=== PATIENT | female | born 1955 | race Caucasian/White ===

== ENCOUNTER 2021-07-20 19:02 | Inpatient (IN) | payer OTHER, MEDICARE ==
[~2021-07-20] VITALS: Ht 160 cm; Wt 114.1 kg
[2021-07-20 20:48] LABS: BASOPHILS % (AUTO) 0.2 % (0.0-5.0); EOSINOPHILS % (AUTO) 1.1 % (0.0-8.0); HEMATOCRIT 38.4 % (36-48); LYMPHOCYTES % (AUTO) 33.8 % (21.0-51.0); MEAN CORPUSCULAR HEMOGLOBIN 25.4 pg (27.0-33.0); MEAN CORPUSCULAR HGB CONC 29.9 g/dL (32.0-36.0); MEAN CORPUSCULAR VOLUME 84.8 fL (79-99); MONOCYTES % (AUTO) 4.9 % (3.0-13.0); PLATELET COUNT (AUTO) 185 K/uL (130-400); RED BLOOD CELL COUNT(AUTO) 4.53 MIL/uL (4.00-5.50); RED CELL DISTRIBUTION WIDTH 15.8 % (11.0-15.5); WHITE BLOOD COUNT (AUTO) 9.2 K/uL (4.8-10.8)
[2021-07-20 20:58] LABS: INR 0.98 (0.85-1.15); PROTHROMBIN TIME 10.7 SEC (9.6-11.6)
[2021-07-20 20:59] LABS: PARTIAL THROMBOPLASTIN TIME 25.1 SEC (26.3-35.5)
[2021-07-20 21:00] LABS: APPEARANCE,URINE Clear (CLEAR); BILIRUBIN,URINE Negative (NEGATIVE); COLOR,URINE Yellow (YELLOW); GLUCOSE, URINE (UA) Negative (NEGATIVE); KETONES,URINE Negative (NEGATIVE); LEUKOCYTE ESTERASE ,URINE Negative (NEGATIVE); NITRATE,URINE Negative (NEGATIVE); OCCULT BLOOD,URINE Negative (NEGATIVE); PH,URINE 5.5 (5.0-8.0); PROTEIN,URINE Negative (NEGATIVE)
[2021-07-20 21:00] LABS: CREATININE 1.4 mg/dL (0.5-1.5)
[2021-07-20] MEDS ORDERED: LISI10TA24 PO (21:02)
[2021-07-20] MEDS ORDERED: FERR-72 PO (21:02)
[2021-07-20] MEDS ORDERED: FAMO40TA7 PO (21:02)
[2021-07-20] MEDS ORDERED: ESOM40CA54 PO (21:02)
[2021-07-20] MEDS ORDERED: SEMA7TAB2 PO (21:02)
[2021-07-20] MEDS ORDERED: ALBU18HF7 IH (21:02)
[2021-07-20] MEDS ORDERED: ATOR40TA69 PO (21:02)
[2021-07-20] MEDS ORDERED: GABA-529 PO (21:02)
[2021-07-20] MEDS ORDERED: ALEN70TA80 PO (21:02)
[2021-07-20] MEDS ORDERED: FURO20TA4 PO (21:02)
[2021-07-20] MEDS ORDERED: ISOS30TA92 PO (21:02)
[2021-07-20] MEDS ORDERED: BUPR-317 PO (21:02)
[2021-07-20] MEDS ORDERED: ACET-66 PO (21:02)
[2021-07-20 21:07] LABS: ALBUMIN 3.5 g/dL (3.5-5.0); BILIRUBIN,TOTAL 0.3 mg/dL (0.2-1.0); TOTAL PROTEIN, SERUM 7.8 g/dL (6.0-8.3)
[2021-07-20] MEDS ORDERED: ACETAMINOPHEN 500 MG TABLET PO ONE (22:00)
[2021-07-20] MEDS ORDERED: MORPHINE 2 MG SYG IVP PRN (22:30)
[2021-07-20] MEDS ORDERED: ALBUTEROL INHALER 90MCG/INH IH PRN (23:30)
[2021-07-21] VITALS (7 sets, daily range): BP systolic 107–152; BP diastolic 47–66
[2021-07-21 05:04] LABS: BASOPHILS % (AUTO) 0.4 % (0.0-5.0); EOSINOPHILS % (AUTO) 1.2 % (0.0-8.0); HEMATOCRIT 35.5 % (36-48); LYMPHOCYTES % (AUTO) 37.3 % (21.0-51.0); MEAN CORPUSCULAR HEMOGLOBIN 25.7 pg (27.0-33.0); MEAN CORPUSCULAR HGB CONC 29.9 g/dL (32.0-36.0); MEAN CORPUSCULAR VOLUME 86.2 fL (79-99); MONOCYTES % (AUTO) 5.2 % (3.0-13.0); NEUTROPHILS % (AUTO) 55.2 % (40.0-77.0); PLATELET COUNT (AUTO) 157 K/uL (130-400); RED BLOOD CELL COUNT(AUTO) 4.12 MIL/uL (4.00-5.50); RED CELL DISTRIBUTION WIDTH 15.9 % (11.0-15.5); WHITE BLOOD COUNT (AUTO) 8.1 K/uL (4.8-10.8)
[2021-07-21 05:10] LABS: CREATININE 1.3 mg/dL (0.5-1.5); POTASSIUM 3.8 mmol/L (3.5-5.1)
[2021-07-21 05:34] LABS: HEMOGLOBIN A1C 6.6 % (4.0-6.0)
[2021-07-21] MEDS: SEMAGLUTIDE 7 MG PO SCH (07:30)
[2021-07-21] MEDS: PANTOPRAZOLE 40 MG TAB DR PO SCH (08:34)
[2021-07-21] MEDS: GABAPENTIN 100 MG CAPSULE PO SCH ×3 (08:34→19:59)
[2021-07-21] MEDS: ISOSORBIDE MONO 30MG SR TAB PO SCH (08:35)
[2021-07-21] MEDS: LISINOPRIL 10 MG TABLET PO SCH (08:36)
[2021-07-21] MEDS: ATORVASTATIN 40 MG TABLET PO SCH (08:36)
[2021-07-21] MEDS: FERROUS SULFATE 325 MG TABLET.DR PO SCH (08:36)
[2021-07-21] MEDS: BUPROPION HCL 150 MG TABLET.SA PO SCH (08:36)
[2021-07-21] MEDS: FUROSEMIDE 20 MG TABLET PO SCH (08:36)
[2021-07-21] MEDS: ONDANSETRON 4MG INJ IVP PRN ×2 (10:03→20:00)
[2021-07-21] MEDS: FAMOTIDINE 20MG TAB PO SCH (19:56)
[2021-07-22 03:54] VITALS: BP 127/46
[2021-07-22] MEDS: SEMAGLUTIDE 7 MG PO SCH (07:30)
[2021-07-22 08:00] VITALS: BP 140/35
[2021-07-22] MEDS: GABAPENTIN 100 MG CAPSULE PO SCH ×3 (09:03→21:19)
[2021-07-22] MEDS: ISOSORBIDE MONO 30MG SR TAB PO SCH (09:03)
[2021-07-22] MEDS: FERROUS SULFATE 325 MG TABLET.DR PO SCH (09:03)
[2021-07-22] MEDS: ATORVASTATIN 40 MG TABLET PO SCH (09:03)
[2021-07-22] MEDS: LISINOPRIL 10 MG TABLET PO SCH (09:04)
[2021-07-22] MEDS: PANTOPRAZOLE 40 MG TAB DR PO SCH (09:04)
[2021-07-22] MEDS: BUPROPION HCL 150 MG TABLET.SA PO SCH (09:04)
[2021-07-22] MEDS: FUROSEMIDE 20 MG TABLET PO SCH (09:05)
[2021-07-22] MEDS ORDERED: ACET-2521 PO (09:13)
[2021-07-22 16:00] VITALS: BP 132/69
[2021-07-22] MEDS: ACETAMINOPHEN 325 MG TAB PO PRN (17:16)
[2021-07-22 20:00] VITALS: BP 142/63
[2021-07-22] MEDS: ARTHRITIS PAIN RELIEF PO SCH (21:00)
[2021-07-22] MEDS: FAMOTIDINE 20MG TAB PO SCH (21:19)
[2021-07-23] VITALS: BP 138/63
[2021-07-23 04:00] VITALS: BP 133/60
[2021-07-23 04:22] LABS: HEMATOCRIT 38.9 % (36-48); MEAN CORPUSCULAR HEMOGLOBIN 25.9 pg (27.0-33.0); MEAN CORPUSCULAR HGB CONC 30.1 g/dL (32.0-36.0); MEAN CORPUSCULAR VOLUME 86.1 fL (79-99); RED BLOOD CELL COUNT(AUTO) 4.52 MIL/uL (4.00-5.50); RED CELL DISTRIBUTION WIDTH 16.1 % (11.0-15.5); WHITE BLOOD COUNT (AUTO) 9.2 K/uL (4.8-10.8)
[2021-07-23 04:52] LABS: CREATININE 1.3 mg/dL (0.5-1.5); MAGNESIUM 2.2 mg/dL (1.80-2.40); POTASSIUM 4.4 mmol/L (3.5-5.1)
[2021-07-23] MEDS: ALENDRONATE SODIUM 35 MG TAB PO SCH (05:34)
[2021-07-23] MEDS: SEMAGLUTIDE 7 MG PO SCH (06:38)
[2021-07-23] MEDS: PANTOPRAZOLE 40 MG TAB DR PO SCH (06:38)
[2021-07-23] MEDS: FERROUS SULFATE 325 MG TABLET.DR PO SCH (06:38)
[2021-07-23] MEDS ORDERED: REGADENOSON 0.4 MG/5 ML PF SYG IVP SCH (07:00)
[2021-07-23] MEDS ORDERED: ALBUTEROL INHALER 90MCG/INH IH PRN (07:00)
[2021-07-23] MEDS: ARTHRITIS PAIN RELIEF PO SCH ×2 (09:00→21:00)
[2021-07-23] MEDS: GABAPENTIN 100 MG CAPSULE PO SCH ×3 (09:00→21:20)
[2021-07-23 12:00] VITALS: BP 149/65
[2021-07-23] MEDS: LISINOPRIL 10 MG TABLET PO SCH (13:03)
[2021-07-23] MEDS: ISOSORBIDE MONO 30MG SR TAB PO SCH (13:04)
[2021-07-23] MEDS: ATORVASTATIN 40 MG TABLET PO SCH (13:04)
[2021-07-23] MEDS: FUROSEMIDE 20 MG TABLET PO SCH (13:04)
[2021-07-23 16:00] VITALS: BP 148/72
[2021-07-23] MEDS: BUPROPION HCL 150 MG TABLET.SA PO SCH (16:52)
[2021-07-23 19:30] VITALS: BP 157/81
[2021-07-23] MEDS: FAMOTIDINE 20MG TAB PO SCH (21:21)
[2021-07-23] MEDS ORDERED: METO50 PO (21:29)
[2021-07-23] MEDS: ACETAMINOPHEN 325 MG TAB PO PRN (21:30)
[2021-07-24] VITALS (7 sets, daily range): BP systolic 107–160; BP diastolic 53–69
[2021-07-24] MEDS: SEMAGLUTIDE 7 MG PO SCH (07:30)
[2021-07-24] MEDS: PANTOPRAZOLE 40 MG TAB DR PO SCH (07:30)
[2021-07-24] MEDS: ARTHRITIS PAIN RELIEF PO SCH ×2 (09:00→21:00)
[2021-07-24] MEDS: BUPROPION HCL 150 MG TABLET.SA PO SCH (09:04)
[2021-07-24] MEDS: LISINOPRIL 10 MG TABLET PO SCH (09:04)
[2021-07-24] MEDS: ATORVASTATIN 40 MG TABLET PO SCH (09:04)
[2021-07-24] MEDS: METOPROLOL TARTRATE 50 MG TAB PO SCH ×2 (09:04→21:15)
[2021-07-24] MEDS: FUROSEMIDE 20 MG TABLET PO SCH (09:05)
[2021-07-24] MEDS: GABAPENTIN 100 MG CAPSULE PO SCH ×3 (09:05→21:14)
[2021-07-24] MEDS: ISOSORBIDE MONO 30MG SR TAB PO SCH (09:05)
[2021-07-24] MEDS: FERROUS SULFATE 325 MG TABLET.DR PO SCH (09:05)
[2021-07-24] MEDS: ACETAMINOPHEN 325 MG TAB PO PRN (17:59)
[2021-07-24] MEDS: FAMOTIDINE 20MG TAB PO SCH (21:13)
[2021-07-25 04:02] VITALS: BP 135/54
[2021-07-25 07:25] VITALS: BP 147/63
[2021-07-25] MEDS: SEMAGLUTIDE 7 MG PO SCH (07:30)
[2021-07-25] MEDS: PANTOPRAZOLE 40 MG TAB DR PO SCH (08:25)
[2021-07-25] MEDS: BUPROPION HCL 150 MG TABLET.SA PO SCH (08:25)
[2021-07-25] MEDS: LISINOPRIL 10 MG TABLET PO SCH (08:25)
[2021-07-25] MEDS: ASPIRIN 81 MG EC TAB PO SCH (08:26)
[2021-07-25] MEDS: METOPROLOL TARTRATE 50 MG TAB PO SCH ×2 (08:26→22:10)
[2021-07-25] MEDS: ISOSORBIDE MONO 30MG SR TAB PO SCH (08:26)
[2021-07-25] MEDS: FERROUS SULFATE 325 MG TABLET.DR PO SCH (08:26)
[2021-07-25] MEDS: FUROSEMIDE 20 MG TABLET PO SCH (08:26)
[2021-07-25] MEDS: ATORVASTATIN 40 MG TABLET PO SCH (08:26)
[2021-07-25] MEDS: GABAPENTIN 100 MG CAPSULE PO SCH ×3 (08:27→22:10)
[2021-07-25] MEDS: ARTHRITIS PAIN RELIEF PO SCH ×2 (08:27→22:15)
[2021-07-25 09:49] LABS: HEMATOCRIT 38.8 % (36-48); MEAN CORPUSCULAR HEMOGLOBIN 25.5 pg (27.0-33.0); MEAN CORPUSCULAR HGB CONC 30.4 g/dL (32.0-36.0); RED BLOOD CELL COUNT(AUTO) 4.62 MIL/uL (4.00-5.50); RED CELL DISTRIBUTION WIDTH 15.8 % (11.0-15.5); WHITE BLOOD COUNT (AUTO) 16.5 K/uL (4.8-10.8)
[2021-07-25 10:05] LABS: CREATININE 1.2 mg/dL (0.5-1.5); POTASSIUM 4.1 mmol/L (3.5-5.1)
[2021-07-25 11:20] VITALS: BP 114/69
[2021-07-25] MEDS: CEFTRIAXONE 1G VIAL IVP SCH (14:58)
[2021-07-25 15:24] LABS: APPEARANCE,URINE Clear (CLEAR); BILIRUBIN,URINE Negative (NEGATIVE); COLOR,URINE Dark Yellow (YELLOW); GLUCOSE, URINE (UA) Negative (NEGATIVE); KETONES,URINE Negative (NEGATIVE); LEUKOCYTE ESTERASE ,URINE Moderate (NEGATIVE); NITRATE,URINE Positive (NEGATIVE); OCCULT BLOOD,URINE Negative (NEGATIVE); PROTEIN,URINE Trace mg/dL (NEGATIVE)
[2021-07-25 15:30] VITALS: BP 121/48
[2021-07-25 15:31] LABS: HYALINE CASTS, URINE 0-1 /LPF (0-1 /LPF)
[2021-07-25 15:32] LABS: MUCUS,URINE Few LPF (None Seen)
[2021-07-25 15:33] LABS: RBC,URINE 0-1 /HPF (0-1)
[2021-07-25 15:34] LABS: BACTERIA,URINE Moderate /HPF (None Seen)
[2021-07-25 20:08] VITALS: BP 134/83
[2021-07-25] MEDS: LACTULOSE 20 GM/30 ML UDCUP PO SCH (22:09)
[2021-07-25] MEDS: FAMOTIDINE 20MG TAB PO SCH (22:10)
[2021-07-25 23:51] VITALS: BP 120/74
[2021-07-26 03:50] VITALS: BP 122/62
[2021-07-26] MEDS: SEMAGLUTIDE 7 MG PO SCH (06:47)
[2021-07-26] MEDS: PANTOPRAZOLE 40 MG TAB DR PO SCH (06:52)
[2021-07-26] MEDS: ASPIRIN 81 MG EC TAB PO SCH (07:57)
[2021-07-26] MEDS: ATORVASTATIN 40 MG TABLET PO SCH (07:58)
[2021-07-26] MEDS: FUROSEMIDE 20 MG TABLET PO SCH (07:58)
[2021-07-26] MEDS: BUPROPION HCL 150 MG TABLET.SA PO SCH (07:58)
[2021-07-26] MEDS: LISINOPRIL 10 MG TABLET PO SCH (07:59)
[2021-07-26] MEDS: ISOSORBIDE MONO 30MG SR TAB PO SCH (07:59)
[2021-07-26] MEDS: FERROUS SULFATE 325 MG TABLET.DR PO SCH (07:59)
[2021-07-26] MEDS: LACTULOSE 20 GM/30 ML UDCUP PO SCH ×2 (07:59→21:22)
[2021-07-26] MEDS: METOPROLOL TARTRATE 50 MG TAB PO SCH ×2 (07:59→21:22)
[2021-07-26 08:00] VITALS: BP 150/77
[2021-07-26] MEDS: GABAPENTIN 100 MG CAPSULE PO SCH ×3 (08:03→21:22)
[2021-07-26] MEDS: ARTHRITIS PAIN RELIEF PO SCH ×2 (08:04→21:00)
[2021-07-26 12:00] VITALS: BP_SYST 118; BP_SYST 135; BP_DIAS 59; BP_DIAS 65
[2021-07-26] MEDS: CEFTRIAXONE 1G VIAL IVP SCH (13:12)
[2021-07-26 16:00] VITALS: BP 120/73
[2021-07-26 20:10] VITALS: BP 145/70
[2021-07-26] MEDS: FAMOTIDINE 20MG TAB PO SCH (21:22)
[2021-07-26 23:26] VITALS: BP 135/49
[2021-07-27 03:42] VITALS: BP 112/70
[2021-07-27 05:38] LABS: BASOPHILS % (AUTO) 0.1 % (0.0-5.0); HEMATOCRIT 36.9 % (36-48); LYMPHOCYTES % (AUTO) 8.3 % (21.0-51.0); MEAN CORPUSCULAR HEMOGLOBIN 25.4 pg (27.0-33.0); MEAN CORPUSCULAR HGB CONC 30.1 g/dL (32.0-36.0); MEAN CORPUSCULAR VOLUME 84.4 fL (79-99); MONOCYTES % (AUTO) 6.7 % (3.0-13.0); NEUTROPHILS % (AUTO) 84.2 % (40.0-77.0); PLATELET COUNT (AUTO) 210 K/uL (130-400); RED BLOOD CELL COUNT(AUTO) 4.37 MIL/uL (4.00-5.50); RED CELL DISTRIBUTION WIDTH 15.9 % (11.0-15.5); WHITE BLOOD COUNT (AUTO) 17.4 K/uL (4.8-10.8)
[2021-07-27 05:42] LABS: CREATININE 1.5 mg/dL (0.5-1.5); POTASSIUM 3.7 mmol/L (3.5-5.1)
[2021-07-27] MEDS: SEMAGLUTIDE 7 MG PO SCH (06:30)
[2021-07-27] MEDS: PANTOPRAZOLE 40 MG TAB DR PO SCH (06:34)
[2021-07-27] MEDS: ALENDRONATE SODIUM 35 MG TAB PO SCH (06:34)
[2021-07-27 07:30] VITALS: BP 136/61
[2021-07-27] MEDS: ARTHRITIS PAIN RELIEF PO SCH ×2 (09:00→21:00)
[2021-07-27] MEDS: ATORVASTATIN 40 MG TABLET PO SCH (09:45)
[2021-07-27] MEDS: GABAPENTIN 100 MG CAPSULE PO SCH ×3 (09:46→22:27)
[2021-07-27] MEDS: FUROSEMIDE 20 MG TABLET PO SCH (09:46)
[2021-07-27] MEDS: ASPIRIN 81 MG EC TAB PO SCH (09:46)
[2021-07-27] MEDS: BUPROPION HCL 150 MG TABLET.SA PO SCH (09:46)
[2021-07-27] MEDS: ISOSORBIDE MONO 30MG SR TAB PO SCH (09:46)
[2021-07-27] MEDS: LISINOPRIL 10 MG TABLET PO SCH (09:46)
[2021-07-27] MEDS: FERROUS SULFATE 325 MG TABLET.DR PO SCH (09:46)
[2021-07-27] MEDS: LACTULOSE 20 GM/30 ML UDCUP PO SCH ×2 (09:48→22:27)
[2021-07-27] MEDS: METOPROLOL TARTRATE 50 MG TAB PO SCH ×2 (09:50→22:27)
[2021-07-27 11:30] VITALS: BP 108/44
[2021-07-27] MEDS ORDERED: 0.9%NACL 10ML VIAL ONE (13:39)
[2021-07-27] MEDS: CEFTRIAXONE 1G VIAL IVP SCH (13:42)
[2021-07-27 16:00] VITALS: BP 115/56
[2021-07-27] MEDS ORDERED: ZOSYN 3.375GM +NS 50ML IV SCH (17:30)
[2021-07-27 20:00] VITALS: BP 127/61
[2021-07-27] MEDS: FAMOTIDINE 20MG TAB PO SCH (22:27)
[2021-07-27] MEDS ORDERED: ZOSYN 3.375GM+NS 50ML 50 ML ONE (23:54)
[2021-07-28] VITALS: BP 116/65
[2021-07-28 04:00] VITALS: BP 119/54
[2021-07-28] MEDS: SEMAGLUTIDE 7 MG PO SCH (06:55)
[2021-07-28] MEDS: PANTOPRAZOLE 40 MG TAB DR PO SCH (06:57)
[2021-07-28 07:30] VITALS: BP 112/42
[2021-07-28] MEDS: ARTHRITIS PAIN RELIEF PO SCH ×2 (09:00→20:24)
[2021-07-28] MEDS: ZOSYN 3.375GM +NS 50ML IV SCH ×3 (09:32→20:05)
[2021-07-28] MEDS: LACTULOSE 20 GM/30 ML UDCUP PO SCH ×2 (09:33→20:23)
[2021-07-28] MEDS: ATORVASTATIN 40 MG TABLET PO SCH (09:34)
[2021-07-28] MEDS: LISINOPRIL 10 MG TABLET PO SCH (09:34)
[2021-07-28] MEDS: FERROUS SULFATE 325 MG TABLET.DR PO SCH (09:34)
[2021-07-28] MEDS: ISOSORBIDE MONO 30MG SR TAB PO SCH (09:34)
[2021-07-28] MEDS: FUROSEMIDE 20 MG TABLET PO SCH (09:35)
[2021-07-28] MEDS: BUPROPION HCL 150 MG TABLET.SA PO SCH (09:35)
[2021-07-28] MEDS: ASPIRIN 81 MG EC TAB PO SCH (09:35)
[2021-07-28] MEDS: GABAPENTIN 100 MG CAPSULE PO SCH ×3 (09:35→20:23)
[2021-07-28] MEDS: METOPROLOL TARTRATE 50 MG TAB PO SCH ×2 (09:35→20:23)
[2021-07-28 11:00] VITALS: BP 135/54
[2021-07-28 16:00] VITALS: BP 108/40
[2021-07-28 20:00] VITALS: BP 103/51
[2021-07-28] MEDS: FAMOTIDINE 20MG TAB PO SCH (20:23)
[2021-07-29] VITALS (7 sets, daily range): BP systolic 104–123; BP diastolic 45–89
[2021-07-29] MEDS: ZOSYN 3.375GM +NS 50ML IV SCH ×3 (01:01→18:02)
[2021-07-29 04:50] LABS: HEMATOCRIT 32.8 % (36-48); MEAN CORPUSCULAR HEMOGLOBIN 24.9 pg (27.0-33.0); MEAN CORPUSCULAR HGB CONC 30.2 g/dL (32.0-36.0); MEAN CORPUSCULAR VOLUME 82.4 fL (79-99); PLATELET COUNT (AUTO) 218 K/uL (130-400); RED BLOOD CELL COUNT(AUTO) 3.98 MIL/uL (4.00-5.50); RED CELL DISTRIBUTION WIDTH 15.8 % (11.0-15.5); WHITE BLOOD COUNT (AUTO) 15.8 K/uL (4.8-10.8)
[2021-07-29 05:23] LABS: CREATININE 1.8 mg/dL (0.5-1.5); MAGNESIUM 3.1 mg/dL (1.80-2.40); POTASSIUM 3.3 mmol/L (3.5-5.1)
[2021-07-29] MEDS: SEMAGLUTIDE 7 MG PO SCH (06:58)
[2021-07-29] MEDS: LACTULOSE 20 GM/30 ML UDCUP PO SCH ×2 (09:00→20:52)
[2021-07-29] MEDS: PANTOPRAZOLE 40 MG TAB DR PO SCH (09:47)
[2021-07-29] MEDS: ISOSORBIDE MONO 30MG SR TAB PO SCH (09:48)
[2021-07-29] MEDS: ASPIRIN 81 MG EC TAB PO SCH (09:48)
[2021-07-29] MEDS: FERROUS SULFATE 325 MG TABLET.DR PO SCH (09:48)
[2021-07-29] MEDS: FUROSEMIDE 20 MG TABLET PO SCH (09:49)
[2021-07-29] MEDS: BUPROPION HCL 150 MG TABLET.SA PO SCH (09:49)
[2021-07-29] MEDS: METOPROLOL TARTRATE 50 MG TAB PO SCH ×2 (09:49→20:52)
[2021-07-29] MEDS: GABAPENTIN 100 MG CAPSULE PO SCH ×3 (09:49→20:53)
[2021-07-29] MEDS: LISINOPRIL 10 MG TABLET PO SCH (09:50)
[2021-07-29] MEDS: ATORVASTATIN 40 MG TABLET PO SCH (09:51)
[2021-07-29] MEDS: CLOPIDOGREL 75MG TAB PO SCH (09:51)
[2021-07-29] MEDS: ARTHRITIS PAIN RELIEF PO SCH ×2 (14:39→20:59)
[2021-07-29] MEDS ORDERED: LIDOCAINE HCL-MPF 1% 2ML VIAL IV PRN (20:30)
[2021-07-29] MEDS ORDERED: POTASSIUM CHLORIDE 20MEQ/100ML 100 ML IV PRN (20:30)
[2021-07-29] MEDS ORDERED: POTASSIUM CHLORIDE 10% ELIXIR 20 MEQ/15 ML UDCUP PO PRN (20:30)
[2021-07-29] MEDS: FAMOTIDINE 20MG TAB PO SCH (20:52)
[2021-07-29] MEDS: KCL 20 MEQ ERTAB PO PRN (21:00)
[2021-07-30] MEDS: ZOSYN 3.375GM +NS 50ML IV SCH ×3 (01:25→17:47)
[2021-07-30] MEDS: KCL 20 MEQ ERTAB PO PRN ×4 (01:35→17:47)
[2021-07-30 04:33] VITALS: BP 125/72
[2021-07-30 05:25] LABS: INR 1.05 (0.85-1.15); PROTHROMBIN TIME 11.4 SEC (9.6-11.6)
[2021-07-30 05:27] LABS: PARTIAL THROMBOPLASTIN TIME 27.1 SEC (26.3-35.5)
[2021-07-30] MEDS: ALENDRONATE SODIUM 35 MG TAB PO SCH (06:30)
[2021-07-30] MEDS: PANTOPRAZOLE 40 MG TAB DR PO SCH (06:36)
[2021-07-30] MEDS: SEMAGLUTIDE 7 MG PO SCH (06:37)
[2021-07-30 07:30] VITALS: BP 97/58
[2021-07-30] MEDS: LISINOPRIL 10 MG TABLET PO SCH (09:00)
[2021-07-30] MEDS: ISOSORBIDE MONO 30MG SR TAB PO SCH (09:00)
[2021-07-30] MEDS: CLOPIDOGREL 75MG TAB PO SCH (09:18)
[2021-07-30] MEDS: FERROUS SULFATE 325 MG TABLET.DR PO SCH (09:18)
[2021-07-30] MEDS: GABAPENTIN 100 MG CAPSULE PO SCH ×3 (09:19→21:35)
[2021-07-30] MEDS: BUPROPION HCL 150 MG TABLET.SA PO SCH (09:20)
[2021-07-30] MEDS: LACTULOSE 20 GM/30 ML UDCUP PO SCH ×2 (09:21→21:34)
[2021-07-30] MEDS: ASPIRIN 81 MG EC TAB PO SCH (09:21)
[2021-07-30] MEDS: ATORVASTATIN 40 MG TABLET PO SCH (09:22)
[2021-07-30] MEDS: FUROSEMIDE 20 MG TABLET PO SCH (09:22)
[2021-07-30] MEDS: ARTHRITIS PAIN RELIEF PO SCH ×2 (09:22→21:00)
[2021-07-30] MEDS: METOPROLOL TARTRATE 50 MG TAB PO SCH ×2 (09:23→21:35)
[2021-07-30 11:42] VITALS: BP 110/43
[2021-07-30 15:51] VITALS: BP 106/61
[2021-07-30] MEDS ORDERED: METOPROLOL TARTRATE 1 MG/ML 5ML VIAL IV ONE ×2 (18:36→19:00)
[2021-07-30] MEDS ORDERED: METOPROLOL TARTRATE 50 MG TAB PO ONE (19:30)
[2021-07-30] MEDS: APIXABAN 2.5 MG TABLET PO SCH ×2 (20:12→20:20)
[2021-07-30 20:44] VITALS: BP 116/49
[2021-07-30] MEDS: FAMOTIDINE 20MG TAB PO SCH (21:35)
[2021-07-30 23:28] VITALS: BP 106/47
[2021-07-31] MEDS: ZOSYN 3.375GM +NS 50ML IV SCH ×2 (01:09→09:34)
[2021-07-31 04:14] VITALS: BP 142/91
[2021-07-31 08:00] VITALS: BP 106/76
[2021-07-31] MEDS: ARTHRITIS PAIN RELIEF PO SCH ×2 (09:00→21:00)
[2021-07-31] MEDS: LACTULOSE 20 GM/30 ML UDCUP PO SCH ×2 (09:34→20:14)
[2021-07-31] MEDS: BUPROPION HCL 150 MG TABLET.SA PO SCH (09:35)
[2021-07-31] MEDS: ATORVASTATIN 40 MG TABLET PO SCH (09:35)
[2021-07-31] MEDS: FERROUS SULFATE 325 MG TABLET.DR PO SCH (09:36)
[2021-07-31] MEDS: CLOPIDOGREL 75MG TAB PO SCH (09:36)
[2021-07-31] MEDS: FUROSEMIDE 20 MG TABLET PO SCH (09:36)
[2021-07-31] MEDS: APIXABAN 2.5 MG TABLET PO SCH ×2 (09:37→21:04)
[2021-07-31] MEDS: ASPIRIN 81 MG EC TAB PO SCH (09:37)
[2021-07-31] MEDS: METOPROLOL TARTRATE 50 MG TAB PO SCH ×2 (09:37→21:04)
[2021-07-31] MEDS: GABAPENTIN 100 MG CAPSULE PO SCH ×3 (09:38→21:04)
[2021-07-31] MEDS: ISOSORBIDE MONO 30MG SR TAB PO SCH (09:38)
[2021-07-31] MEDS: PANTOPRAZOLE 40 MG TAB DR PO SCH (09:39)
[2021-07-31] MEDS: LISINOPRIL 10 MG TABLET PO SCH (09:39)
[2021-07-31] MEDS: SEMAGLUTIDE 7 MG PO SCH (09:44)
[2021-07-31 12:00] VITALS: BP 95/59
[2021-07-31 12:36] LABS: HEMATOCRIT 35.8 % (36-48); MEAN CORPUSCULAR HEMOGLOBIN 25.6 pg (27.0-33.0); MEAN CORPUSCULAR HGB CONC 29.9 g/dL (32.0-36.0); MEAN CORPUSCULAR VOLUME 85.6 fL (79-99); RED BLOOD CELL COUNT(AUTO) 4.18 MIL/uL (4.00-5.50); RED CELL DISTRIBUTION WIDTH 16.3 % (11.0-15.5); WHITE BLOOD COUNT (AUTO) 13.2 K/uL (4.8-10.8)
[2021-07-31 16:00] VITALS: BP 100/45
[2021-07-31] MEDS: CEFTRIAXONE 1G VIAL IVP SCH (16:53)
[2021-07-31 20:00] VITALS: BP 111/74
[2021-07-31] MEDS: FAMOTIDINE 20MG TAB PO SCH (21:03)
[2021-07-31 23:46] VITALS: BP 95/46
[2021-08-01 03:52] VITALS: BP 154/90
[2021-08-01] MEDS ORDERED: METOPROLOL TARTRATE 1 MG/ML 5ML VIAL IV ONE (06:28)
[2021-08-01] MEDS ORDERED: METOPROLOL TARTRATE 1 MG/ML 5ML VIAL IV SCH (06:30)
[2021-08-01] MEDS: SEMAGLUTIDE 7 MG PO SCH (06:49)
[2021-08-01] MEDS: PANTOPRAZOLE 40 MG TAB DR PO SCH (06:50)
[2021-08-01 08:00] VITALS: BP 120/69
[2021-08-01] MEDS: ARTHRITIS PAIN RELIEF PO SCH ×2 (09:00→19:54)
[2021-08-01] MEDS: CLOPIDOGREL 75MG TAB PO SCH (10:11)
[2021-08-01] MEDS: FERROUS SULFATE 325 MG TABLET.DR PO SCH (10:12)
[2021-08-01] MEDS: APIXABAN 2.5 MG TABLET PO SCH ×2 (10:12→19:54)
[2021-08-01] MEDS: ISOSORBIDE MONO 30MG SR TAB PO SCH (10:12)
[2021-08-01] MEDS: METOPROLOL TARTRATE 50 MG TAB PO SCH ×2 (10:12→19:53)
[2021-08-01] MEDS: ATORVASTATIN 40 MG TABLET PO SCH (10:12)
[2021-08-01] MEDS: LISINOPRIL 5 MG TABLET PO SCH (10:12)
[2021-08-01] MEDS: LACTULOSE 20 GM/30 ML UDCUP PO SCH ×2 (10:13→19:54)
[2021-08-01] MEDS: BUPROPION HCL 150 MG TABLET.SA PO SCH (10:13)
[2021-08-01] MEDS: GABAPENTIN 100 MG CAPSULE PO SCH ×3 (10:15→19:53)
[2021-08-01 12:00] VITALS: BP 124/64
[2021-08-01] MEDS: CEFTRIAXONE 1G VIAL IVP SCH (15:00)
[2021-08-01 16:00] VITALS: BP 95/64
[2021-08-01 19:00] VITALS: BP 114/68
[2021-08-01] MEDS: FAMOTIDINE 20MG TAB PO SCH (19:54)
[2021-08-02] VITALS (7 sets, daily range): BP systolic 106–126; BP diastolic 49–77
[2021-08-02 05:40] LABS: HEMATOCRIT 35.4 % (36-48); MEAN CORPUSCULAR HEMOGLOBIN 24.6 pg (27.0-33.0); MEAN CORPUSCULAR HGB CONC 29.4 g/dL (32.0-36.0); MEAN CORPUSCULAR VOLUME 83.7 fL (79-99); RED BLOOD CELL COUNT(AUTO) 4.23 MIL/uL (4.00-5.50); RED CELL DISTRIBUTION WIDTH 16.1 % (11.0-15.5); WHITE BLOOD COUNT (AUTO) 10.5 K/uL (4.8-10.8)
[2021-08-02 05:57] LABS: CREATININE 1.4 mg/dL (0.5-1.5); MAGNESIUM 3.2 mg/dL (1.80-2.40); POTASSIUM 3.4 mmol/L (3.5-5.1)
[2021-08-02] MEDS: PANTOPRAZOLE 40 MG TAB DR PO SCH (06:32)
[2021-08-02] MEDS: SEMAGLUTIDE 7 MG PO SCH (06:33)
[2021-08-02] MEDS: KCL 20 MEQ ERTAB PO PRN ×2 (07:12→13:53)
[2021-08-02] MEDS: ARTHRITIS PAIN RELIEF PO SCH ×2 (09:00→21:00)
[2021-08-02] MEDS: LACTULOSE 20 GM/30 ML UDCUP PO SCH ×2 (09:00→21:31)
[2021-08-02] MEDS: FERROUS SULFATE 325 MG TABLET.DR PO SCH (09:18)
[2021-08-02] MEDS: CLOPIDOGREL 75MG TAB PO SCH (09:19)
[2021-08-02] MEDS: METOPROLOL TARTRATE 50 MG TAB PO SCH ×2 (09:19→21:29)
[2021-08-02] MEDS: BUPROPION HCL 150 MG TABLET.SA PO SCH (09:19)
[2021-08-02] MEDS: GABAPENTIN 100 MG CAPSULE PO SCH ×3 (09:19→21:28)
[2021-08-02] MEDS: ATORVASTATIN 40 MG TABLET PO SCH (09:19)
[2021-08-02] MEDS: LISINOPRIL 5 MG TABLET PO SCH (09:20)
[2021-08-02] MEDS: ISOSORBIDE MONO 30MG SR TAB PO SCH (09:20)
[2021-08-02] MEDS: APIXABAN 2.5 MG TABLET PO SCH ×2 (09:21→21:28)
[2021-08-02] MEDS: ACETAMINOPHEN 325 MG TAB PO PRN (10:21)
[2021-08-02] MEDS: CEFTRIAXONE 1G VIAL IVP SCH (14:56)
[2021-08-02] MEDS: FAMOTIDINE 20MG TAB PO SCH (21:29)
[2021-08-03 04:47] VITALS: BP 134/72
[2021-08-03 05:25] LABS: BASOPHILS % (AUTO) 0.2 % (0.0-5.0); EOSINOPHILS % (AUTO) 0.6 % (0.0-8.0); HEMATOCRIT 33.4 % (36-48); LYMPHOCYTES % (AUTO) 13.2 % (21.0-51.0); MEAN CORPUSCULAR HEMOGLOBIN 25.8 pg (27.0-33.0); MEAN CORPUSCULAR HGB CONC 30.5 g/dL (32.0-36.0); MEAN CORPUSCULAR VOLUME 84.3 fL (79-99); MONOCYTES % (AUTO) 4.1 % (3.0-13.0); NEUTROPHILS % (AUTO) 80.1 % (40.0-77.0); PLATELET COUNT (AUTO) 309 K/uL (130-400); RED BLOOD CELL COUNT(AUTO) 3.96 MIL/uL (4.00-5.50); RED CELL DISTRIBUTION WIDTH 16.2 % (11.0-15.5); WHITE BLOOD COUNT (AUTO) 13.4 K/uL (4.8-10.8)
[2021-08-03] MEDS: SEMAGLUTIDE 7 MG PO SCH (06:35)
[2021-08-03] MEDS: PANTOPRAZOLE 40 MG TAB DR PO SCH (06:35)
[2021-08-03 08:00] VITALS: BP 138/68
[2021-08-03] MEDS: LACTULOSE 20 GM/30 ML UDCUP PO SCH ×2 (08:39→20:12)
[2021-08-03] MEDS: FERROUS SULFATE 325 MG TABLET.DR PO SCH (08:39)
[2021-08-03] MEDS: BUPROPION HCL 150 MG TABLET.SA PO SCH (08:39)
[2021-08-03] MEDS: ATORVASTATIN 40 MG TABLET PO SCH (08:39)
[2021-08-03] MEDS: APIXABAN 2.5 MG TABLET PO SCH ×2 (08:40→20:11)
[2021-08-03] MEDS: METOPROLOL TARTRATE 50 MG TAB PO SCH (08:40)
[2021-08-03] MEDS: LISINOPRIL 5 MG TABLET PO SCH (08:40)
[2021-08-03] MEDS: ISOSORBIDE MONO 30MG SR TAB PO SCH (08:41)
[2021-08-03] MEDS: GABAPENTIN 100 MG CAPSULE PO SCH ×3 (08:41→20:11)
[2021-08-03] MEDS: CLOPIDOGREL 75MG TAB PO SCH (08:41)
[2021-08-03] MEDS: ARTHRITIS PAIN RELIEF PO SCH ×2 (08:43→20:12)
[2021-08-03 09:09] LABS: POTASSIUM 4.5 mmol/L (3.5-5.1)
[2021-08-03 12:00] VITALS: BP 114/54
[2021-08-03] MEDS: CEFTRIAXONE 1G VIAL IVP SCH (14:25)
[2021-08-03 16:00] VITALS: BP 134/59
[2021-08-03] MEDS ORDERED: METOPROLOL TARTRATE 50 MG TAB PO STA (16:27)
[2021-08-03] MEDS: FAMOTIDINE 20MG TAB PO SCH (20:11)
[2021-08-03 20:59] VITALS: BP 102/55
[2021-08-03] MEDS ORDERED: METOPROLOL TARTRATE 50 MG TAB PO SCH (22:00)
== END 2021-08-03 22:16 | DRG 682 ==
LOC: EDH 19:02 → EDHIP 19:03 → 3BH 23:37
PROVIDERS: ADMIT Internal Medicine Infectious Disease; ATTEND Internal Medicine Infectious Disease
PROC: 4A02XM4 Measurement of Cardiac Total Activity, External Approach (ICD-10-PCS; principal; 2021-07-23)
PROC: 3E073KZ Introduction of Other Diagnostic Substance into Coronary Artery, Percutaneous Approach (ICD-10-PCS; 2021-07-23)
PROC: 02HV33Z Insertion of Infusion Device into Superior Vena Cava, Percutaneous Approach (ICD-10-PCS; 2021-07-30)
DX: N17.9 Acute kidney failure, unspecified (principal); I62.03 Nontraumatic chronic subdural hemorrhage; G93.41 Metabolic encephalopathy; N39.0 Urinary tract infection, site not specified; I13.0 Hypertensive heart and chronic kidney disease with heart failure and stage 1 through stage 4 chronic kidney disease, or unspecified chronic kidney disease; G93.40 Encephalopathy, unspecified; Z20.822 Contact with and (suspected) exposure to COVID-19; E78.00 Pure hypercholesterolemia, unspecified; I25.10 Atherosclerotic heart disease of native coronary artery without angina pectoris; E11.42 Type 2 diabetes mellitus with diabetic polyneuropathy; E11.22 Type 2 diabetes mellitus with diabetic chronic kidney disease; N18.9 Chronic kidney disease, unspecified; E66.01 Morbid (severe) obesity due to excess calories; R53.81 Other malaise; B96.20 Unspecified Escherichia coli [E. coli] as the cause of diseases classified elsewhere; I48.91 Unspecified atrial fibrillation; I25.5 Ischemic cardiomyopathy; I50.9 Heart failure, unspecified; J44.9 Chronic obstructive pulmonary disease, unspecified; F17.200 Nicotine dependence, unspecified, uncomplicated; M81.0 Age-related osteoporosis without current pathological fracture; E78.5 Hyperlipidemia, unspecified; Z95.1 Presence of aortocoronary bypass graft; F32.A Depression, unspecified; Z83.3 Family history of diabetes mellitus; Z82.49 Family history of ischemic heart disease and other diseases of the circulatory system
CPT/HCPCS: 36415; 70450; 71045; 78452; 80048; 80053; 81001; 81003; 82140; 82550; 82948; 83036; 83605; 83735; 83874; 83880; 84132; 84484; 85025; 85027; 85610; 85730; 87040; 87077; 87088; 87186; 87635; 87804; 93005; 93017; 93306; 93356; 96374; 97039; A9500; C1758; C1894; C9803; G0378; J0696; J2405; J2543; J2785; J3490